=== PATIENT | female | born 1990 | race African-American/Black ===

== ENCOUNTER 2016-12-21 14:14 | Emergency (ER) | payer MEDICAID, OTHER ==
[~2016-12-21] VITALS: Ht 170.2 cm; Wt 91.0 kg
[~2016-12-21 14:14] MED LIST: COLD MEDICINE
[2016-12-21] MEDS ORDERED: ACETAMINOPHEN 325MG TABLET PO ONE (15:45)
[2016-12-21] MEDS ORDERED: ONDANSETRON 4MG ODT PO ONE (15:45)
[2016-12-21 16:05] LABS: BASOPHILS % 0.5 % (0.0-2.0); EOSINOPHILS % 0.5 % (0.0-5.0); HEMATOCRIT. 40.9 % (36.0-48.0); LYMPHOCYTES % 14.3 % (20.0-50.0); MEAN CORPUSCULAR HEMOGLOBIN 22.8 pg (28.0-32.0); MEAN CORPUSCULAR VOLUME 72.1 fL (81.0-99.0); MONOCYTES % 8.6 % (2.0-8.0); NEUTROPHILS % 76.1 % (40.0-76.0); PLATELET 274 x1000/uL (130-400); RED BLOOD CELL COUNT 5.68 mill/uL (4.2-5.4); RED CELL DISTRIBUTION WIDTH 14.5 % (11.6-14.6)
[2016-12-21 16:18] LABS: CARBON DIOXIDE 22 mEq/L (21-32); CHLORIDE 107 mEq/L (98-107)
[2016-12-21 16:53] LABS: B-HCG QUANTITATIVE 109366 mIU/mL (<3)
[2016-12-21 17:00] VITALS: BP 119/75
[2016-12-21 17:21] LABS: CLARITY URINE CLOUDY (CLEAR); COLOR URINE DARK YELLOW (YELLOW); GLUCOSE URINE NEGATIVE (NEGATIVE); KETONES URINE TRACE (NEGATIVE); LEUKOCYTE ESTERASE URINE 2+ (NEGATIVE); NITRITE URINE NEGATIVE (NEGATIVE); OCCULT BLOOD URINE TRACE (NEGATIVE); PROTEIN URINE TRACE (NEGATIVE); SPECIFIC GRAVITY URINE 1.034 (1.005-1.030)
== END 2016-12-21 18:11 | disposition home or self-care (01) ==
LOC: ER 15:42
DX: O23.41 Unspecified infection of urinary tract in pregnancy, first trimester (principal); O21.9 Vomiting of pregnancy, unspecified; O30.001 Twin pregnancy, unspecified number of placenta and unspecified number of amniotic sacs, first trimester; N39.0 Urinary tract infection, site not specified; R11.0 Nausea; Z3A.11 11 weeks gestation of pregnancy
CPT/HCPCS: 36415; 76801; 80053; 81001; 83690; 84702; 85025; 86850; 86900; 86901; 99285; Q0162

== ENCOUNTER 2017-03-31 14:32 | Emergency (ER) | payer MEDICAID, OTHER ==
[~2017-03-31] VITALS: Ht 170.2 cm; Wt 97.0 kg
[2017-03-31 14:36] VITALS: BP 116/74
== END 2017-03-31 19:45 | disposition left against medical advice (07) ==
LOC: ER 14:32
DX: R06.02 Shortness of breath (principal); Z53.21 Procedure and treatment not carried out due to patient leaving prior to being seen by health care provider

== ENCOUNTER 2017-08-11 16:34 | Emergency (ER) | payer MEDICAID, OTHER ==
[~2017-08-11] VITALS: Ht 160 cm; Wt 78.0 kg
[2017-08-11 16:42] VITALS: BP 116/66
== END 2017-08-11 18:58 | disposition left against medical advice (07) ==
LOC: ER 17:01
DX: N93.9 Abnormal uterine and vaginal bleeding, unspecified (principal); Z53.21 Procedure and treatment not carried out due to patient leaving prior to being seen by health care provider

== ENCOUNTER 2018-05-18 16:18 | Emergency (ER) | payer OTHER ==
[~2018-05-18] VITALS: Ht 175.3 cm; Wt 104.0 kg
[2018-05-18 16:36] VITALS: BP 109/76
[2018-05-18] MEDS ORDERED: LIDOCAINE HCL/PF 1% 2ML VIAL INFIL ONE (18:15)
[2018-05-18] MEDS ORDERED: LIDOCAINE HCL 1% 20ML VIAL (Pyxis) INJ ONE (18:34)
== END 2018-05-18 20:09 | disposition home or self-care (01) ==
LOC: ER 16:18
DX: L03.011 Cellulitis of right finger (principal)
CPT/HCPCS: 10060; 99283; J3490